=== PATIENT | female | born 1960 | race Caucasian/White ===

== ENCOUNTER 2017-11-19 07:01 | Day surgery (SDC) | payer OTHER ==
[~2017-11-19 07:01] MED LIST: ASPI81TA11 PO; ATOR40TA49 PO; COUM2.5T PO; COUM3TAB PO; DOCU1CAP39 PO; ENOX120P SQ; GLUCOMETER XX; GLUCOMTESTSTRIPS XX; ISOS60 PO; KETAMINE HCL 500 MG/5 ML VIAL ONE; METF500 PO; METO25 PO; THERM PO; Z.0.LANCETS XX; ZOFR4TAB3 PO; ZYRT10TA12 PO
[2017-11-19] MEDS ORDERED: METOPROLOL TARTRATE 25 MG TAB PO PRN (07:30)
[2017-11-19] MEDS ORDERED: CHLORHEXIDINE GLUCONATE 2 % 1 PACK (2 CLOTHS) TOPICAL PRN (07:30)
[2017-11-19] MEDS ORDERED: LACTATED RINGER'S 1000 ML IV PRN (07:30)
[2017-11-19] MEDS ORDERED: SODIUM CHLORID 0.9% 500 ML IV PRN (07:30)
[2017-11-19] MEDS ORDERED: POVIDONE IODINE 5% (ANTISEPSIS KIT) 4 APPLICATIONS EACH NARE PRN (07:30)
[2017-11-19] MEDS ORDERED: INSULIN HUMAN REGULAR 1,000 UNITS/10 ML VIAL SQ PRN (07:30)
[2017-11-19] MEDS ORDERED: MECL-62 PO (07:42)
[2017-11-19] MEDS ORDERED: K-TA10TA PO (07:42)
[2017-11-19] MEDS ORDERED: WARF-18 PO (07:42)
[2017-11-19] MEDS ORDERED: ALBI1INJ2 SQ (07:42)
[2017-11-19] MEDS ORDERED: CRANCAP2 PO (07:42)
[2017-11-19] MEDS ORDERED: MULT-65 PO (07:42)
[2017-11-19] MEDS ORDERED: TRAZ100T10 PO (07:42)
[2017-11-19] MEDS ORDERED: ASPI-516 PO (07:42)
[2017-11-19] MEDS ORDERED: WARF-58 PO (07:42)
[2017-11-19] MEDS ORDERED: CLAR10CA3 PO (07:42)
[2017-11-19] MEDS ORDERED: LISI10TA3 PO (07:42)
[2017-11-19] MEDS ORDERED: EMPA1TAB PO (07:42)
[2017-11-19] MEDS ORDERED: DOCU100C15 PO (07:42)
[2017-11-19] MEDS ORDERED: FURO40TA PO (07:42)
[2017-11-19] MEDS ORDERED: ATOR40TA16 PO (07:42)
[2017-11-19] MEDS ORDERED: PROPOFOL 200 MG/20 ML AMP ONE (08:19)
[2017-11-19] MEDS ORDERED: LIDOCAINE HCL 2% 100 MG/5 ML SYRINGE ONE (08:48)
--- NOTE | 2017-11-19 13:03 | ECHRPT ---
Indication: CAD CONCLUSIONS Normal left ventricular size and wall thickness. The left ventricular systolic function is normal wi th an estimated ejection fraction in the range of 60-65%. Left ventricular diastolic function parameters a re normal. 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 Mild thickening of the mitral valve leaflets. [id number] mitral valve regurgitation. Normally functioning aortic valve bioprosthesis. No vegetations BP: / HR: Rhythm: Sinus MEASUREMENTS (Male / Female) Normal Values Technical Quality:Fair 2D ECHO LVOT Diameter 2.0 cm DOPPLER AV Peak Velocity 292.0 cm/s LVOT Peak Gradient 3.3 mmHg AV Peak Gradient 34.1 mmHg LVOT Velocity Time Integr 17.5 cm AV Mean Gradient 14.0 mmHg AV Area Cont Eq vti 1.3 cm AV Velocity Time Integral 41.9 cm AV Area Cont Eq pk 1.0 cm LVOT Peak Velocity 90.2 cm/s Medications Complications Proc. Components FINDINGS LEFT VENTRICLE Normal left ventricular size and wall thickness. The left ventricular systolic function is normal wi th an estimated ejection fraction in the range of 60-65%. Left ventricular diastolic function parameters a re normal. RIGHT VENTRICLE Normal right ventricular size and systolic function. LEFT ATRIUM The left atrial size is mildly dilated. RIGHT ATRIUM The right atrial size is normal. ATRIAL APPENDAGES Normal left atrial appendage size with no evidence of thrombus formation. ATRIAL SEPTUM Normal atrial septal thickness without atrial level shunting by limited color doppler interrogation. No atrial level shunt is observed with agitated saline contrast administration. 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 MITRAL VALVE Mild thickening of the mitral valve leaflets. [id number] mitral valve regurgitation. AORTIC VALVE Normally functioning aortic valve bioprosthesis. TRICUSPID VALVE Structurally normal tricuspid valve. No tricuspid valve stenosis or regurgitation. VESSELS The inferior vena cava is normal in size. PULMONARY VALVE The pulmonary valve is not well visualized. PERICADIUM No pericardial effusion. Michael Ron MD, FACC (Electronically Signed) Final Date:19 November 2017 13:02
== END 2017-11-19 10:40 | disposition home or self-care (01) ==
LOC: HDOC 07:01 → HDIC 07:02 → HDOC 10:40
PROVIDERS: ATTEND Internal Medicine
DX: I25.10 Atherosclerotic heart disease of native coronary artery without angina pectoris (principal); R50.9 Fever, unspecified; Z95.3 Presence of xenogenic heart valve
CPT/HCPCS: 93312; 93320; 93325